=== PATIENT | female | born 1985 | race Caucasian/White ===

== ENCOUNTER → 2023-10-14 12:12 | Outpatient (BNVA) | payer BC, SELFPAY | PROVIDERS: Visit Provider Emergency Medicine | DX: Z20.2 Contact with and (suspected) exposure to infections with a predominantly sexual mode of transmission (principal) | CPT/HCPCS: 81000; 87491; 87529; 87591 ==

== ENCOUNTER → 2024-01-30 13:50 | Outpatient (BNVA) | payer BC, SELFPAY | PROVIDERS: Visit Provider Nurse Practitioner | DX: Z20.2 Contact with and (suspected) exposure to infections with a predominantly sexual mode of transmission (principal); R53.83 Other fatigue; N89.8 Other specified noninflammatory disorders of vagina | CPT/HCPCS: 80053; 83036; 84443; 85025; 87491; 87591; 87661 ==

== ENCOUNTER → 2024-11-04 13:43 | Outpatient (BNVA) | payer BC, SELFPAY | PROVIDERS: PCP Nurse Practitioner; Visit Provider Nurse Practitioner | DX: M25.511 Pain in right shoulder (principal) | CPT/HCPCS: 73030 ==